=== PATIENT | female | born 1955 | race Caucasian/White ===

== ENCOUNTER 2016-11-11 10:53 | Outpatient (CLI) | payer OTHER ==
[2016-11-11 13:35] LABS: ALBUMIN 4.3 g/dL (3.4-5.0); BILIRUBIN,DIRECT 0.2 mg/dL (0.00-0.30); BILIRUBIN,TOTAL 0.48 mg/dL (0.00-1.20); TOTAL PROTEIN 7.8 g/dL (6.4-8.2)
== END 2016-11-11 10:54 | disposition home or self-care (01) ==
LOC: LAB 10:53
PROVIDERS: ATTEND General Practice
DX: Z51.81 Encounter for therapeutic drug level monitoring (principal)
CPT/HCPCS: 36415; 80076

== ENCOUNTER 2017-01-29 22:08 | Outpatient (CLI) ==
--- NOTE | 2017-01-30 07:56 | DI ---
EXAM: Three views of the right fingers. History: Right middle finger pain. Findings: No acute fracture or dislocation. Mild narrowing of the interphalangeal joints. No abno rmal calcifications or radiopaque foreign bodies. Impression: No acute osseous abnormality. Mild arthritis.
== END 2017-01-29 22:09 | disposition home or self-care (01) ==
LOC: RAD 22:08
PROVIDERS: ATTEND Internal Medicine Geriatric Medicine
DX: M79.644 Pain in right finger(s) (principal); M25.641 Stiffness of right hand, not elsewhere classified